=== PATIENT | female | born 1985 | race Two or more races ===

== ENCOUNTER 2019-09-10 01:07 | Emergency (ER) | payer OTHER ==
[~2019-09-10] VITALS: Ht 172.7 cm; Wt 119.0 kg
[2019-09-10] MEDS ORDERED: OMNIPAQUE 350 MG/ML, 100ML BOTTLE ONE (01:29)
[2019-09-10] MEDS ORDERED: SODIUM CHLORIDE FLUSH 10ML SYR IVF ONE (01:30)
[2019-09-10] MEDS ORDERED: MORPHINE SULFATE 4 MG/ML, 1ML ONE (01:51)
[2019-09-10] MEDS ORDERED: PROCHLORPERAZINE 5 MG/ML, 2ML ONE (01:51)
[2019-09-10] MEDS ORDERED: DIPHENHYDRAMINE 50 MG/ML, 1ML ONE (01:51)
[2019-09-10 01:57] LABS: BASOPHILS # (AUTO) 0.16 x10^3/uL (0-0.1); BASOPHILS % (AUTO) 1 % (0-1); EOSINOPHILS # (AUTO) 0.21 x10^3/uL (0-0.4); EOSINOPHILS % (AUTO) 2 % (1-7); LYMPHOCYTES # (AUTO) 2.27 x10^3/uL (1-3.4); LYMPHOCYTES % (AUTO) 20 % (22-44); MD NO; MEAN CORPUSCULAR HGB CONC 33.7 g/dL (32.4-35.8); MEAN CORPUSCULAR VOLUME 89.1 fL (80-100); MEAN PLATELET VOLUME 8.1 fL (7.4-10.4); MONOCYTES # (AUTO) 0.65 x10^3/uL (0.2-0.8); MONOCYTES % (AUTO) 6 % (2-9); NEUTROPHILS # (AUTO) 7.88 x10^3/uL (1.8-6.8); NEUTROPHILS % (AUTO) 71 % (42-75); PLATELET COUNT 291 x10^3/uL (130-400); RED CELL DISTRIBUTION WIDTH 13.2 % (9.6-15.2)
--- NOTE | 2019-09-10 01:59 | NUR ---
PT MEDICATED PER OCT. POC DISCUSSED. PT WITH MUCH RELIEF POST MEDS. PT AND FAMILY DENY FURTHER NEEDS AT THIS TIME.
[2019-09-10] MEDS ORDERED: SODIUM CHLORIDE 0.9% 1,000ML IVBOLUS ONE (02:00)
[2019-09-10] MEDS ORDERED: DIPHENHYDRAMINE 50 MG/ML, 1ML IVPush ONE (02:00)
[2019-09-10] MEDS ORDERED: morphine SULFATE 10 MG/ML, 1ML IVPush ONE (02:00)
[2019-09-10] MEDS ORDERED: PROCHLORPERAZINE 5 MG/ML, 2ML IVPush ONE (02:00)
[2019-09-10 02:06] LABS: ALANINE AMINOTRANSFERASE 23 U/L (12-78); ALBUMIN 3.3 g/dL (3.4-5.0); ANION GAP 9 mmol/L (5-15); CALCIUM 8.3 mg/dL (8.5-10.1); CHLORIDE 106 mmol/L (98-107); CREATININE 0.69 mg/dL (0.55-1.02)
[2019-09-10 02:10] LABS: ALKALINE PHOSPHATASE 42 U/L (45-117); BILIRUBIN,TOTAL 0.2 mg/dL (0.2-1.0); TOTAL PROTEIN 6.9 g/dL (6.4-8.2)
[2019-09-10] MEDS ORDERED: ZOLMITRIPTAN 2.5 MG PO PRN (04:00)
[2019-09-10] MEDS ORDERED: ZOLMITRIPTAN 5 MG PO PRN (04:00)
--- NOTE | 2019-09-10 04:10 | NUR ---
PT SLEEPING HOWEVER WHEN AWOKEN PT STATES HEADACHE STILL REMAINS. PT MEDICATED PER OCT. PT IMMEDIATELY FALLS BACK ASLEEP. FAMILY BEDSIDE DENIES CURRENT NEEDS.
--- NOTE | 2019-09-10 04:43 | NUR ---
PA AT BEDSIDE FOR RECHECK. MINIMAL RELIEF. PT NOW DISCUSSING PLAN WITH
[2019-09-10] MEDS ORDERED: HYDROcodone/APAP 5/325 TABLET PO ONE (05:00)
[2019-09-10] MEDS ORDERED: HYDROcodone/APAP 5/325 TABLET ONE (05:03)
[2019-09-10 05:37] VITALS: BP 124/74
== END 2019-09-10 05:39 | disposition home or self-care (01) ==
LOC: ED 04:10
DX: G44.219 Episodic tension-type headache, not intractable (principal)
CPT/HCPCS: 36415; 70450; 70496; 80053; 84703; 85025; 96374; 96375; 99284; J0780; J1200; J2270; J7030; Q9967